=== PATIENT | male | born 1970 | race Caucasian/White ===

== ENCOUNTER → 2020-07-03 | Outpatient (CLI) | payer OTHER ==
--- NOTE | 2020-07-03 10:01 | KCIC ---
MRI OF THE PELVIS WITHOUT CONTRAST Clinical indications: Progressing left lower extremity numbness from hip down to foot for several months. Possible left-sided piriformis syndrome. TECHNIQUE: Noncontrast MRI sequences of the left side of the pelvis were performed in all 3 planes. The coronal sequences included included the right side of the anatomic pelvis. COMPARISON: None available. FINDINGS: No mass or enlargement of the piriformis muscle on the left side is seen. There is no edema or swelling of this muscle. The sciatic nerve courses just anterior and inferior to the piriformis muscle but not through the substance of the muscle. Tendon of the piriformis muscle is intact. Otherwise no muscle edema or soft tissue edema or soft tissue mass or soft tissue hematoma of the left hip area is seen. No significant left hip joint effusion is seen. There is mild degenerative spurring of the left femoral head. The acetabular labrum appears intact and no paralabral ganglion cyst is seen. No avascular necrosis of the left femoral head is seen. No fracture or bone contusion or marrow infiltrative process is seen. No ischial tuberosity bursitis is seen. The conjoined hamstring string tendon attachment to the ischial tuberosity is intact. The iliopsoas tendon is intact and no iliopsoas bursitis is seen. No greater trochanteric bursitis is seen. The gluteal tendons are intact. No bone marrow edema or marrow infiltrative process of the other pelvic bones is seen. Bone island of the right iliac bone anteriorly is seen. 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 Otherwise no significant MRI abnormality of the left hip or left side of the pelvis is seen. Specifically, the left piriformis muscle appears normal without edema. Electronically signed by: Roman Shoemaker MD (07/03/2020 9:58 AM) [place] [id number]
== END ==
LOC: KCIC MRI 07:54
PROVIDERS: ATTEND Psychiatry & Neurology Neurology with Special Qualifications in Child Neurology
DX: M16.12 Unilateral primary osteoarthritis, left hip (principal); G57.32 Lesion of lateral popliteal nerve, left lower limb; G57.02 Lesion of sciatic nerve, left lower limb
CPT/HCPCS: 72195